=== PATIENT | male | born 1955 | race Caucasian/White ===

== ENCOUNTER 2021-03-05 05:11 | Observation (INO) ==
--- NOTE | 2021-01-19 16:16 | PAT Medication Instructions ---
Medication Instructions Date of Service January 19, 2021 Home Medications betamethasone dipropionate 1 applic TOPICAL BID PRN meloxicam 15 mg PO QAM ASK your surgeon for instructions meloxicam 15 mg PO QAM STOP taking 24 hours before surgery betamethasone dipropionate 1 applic TOPICAL BID PRN OTHERWISE NOTHING TO EAT OR DRINK AFTER MIDNIGHT Other Notes If you have any questions please call us at [phone] or [phone] or [phone] or [phone]
--- NOTE | 2021-01-21 08:15 | Anesthesiology Consultation ---
Date of Service January 21, 2021 Assessment & Plan (1) Encounter for pre-operative examination: Chart Review Chart Review: Acceptable Risk for Surgery (pending preop Covid testing results ) and Patient seen in Pre Admission Testing Per PAT appt on 01/21/21, pt traveled to [place] in December 2020- stayed with daughter and family- wore mask in public in [place]. Occasionally wears mask in [place] in public. Pt is vaccinated for Covid. No known Covid positive contacts or Covid related symptoms. No known Covid infection in the past 90 days . Preop Covid testing scheduled 03/03/21= will await results. Educated on importance of self quarantining, social distancing and wearing mask in public both for the patient after Covid testing done Teaching & Discussion Pre-Anesthesia Teaching/Discussion Notes: Instructed NPO after midnight before surgery,except medications with 15 cc of water. Medication instructions provided according to the PAT guidelines. History Surgery Operation Date: 03/05/21 07:15 Proposed Procedures p Left Total Hip Arthroplasty - Adi Aguilera MD Height/Weight Height: 5 ft 9.5 in Weight: 75 kg Allergies Allergy/AdvReac Type Severity Reaction Status Date / Time Iodinated Contrast Media Allergy Intermediate NAUSEA/FACIAL Verified 01/19/21 08:35 SWELLING Medications Home Medications Medication Instructions Recorded Confirmed Last Taken betamethasone dipropionate 1 applic TOPICAL BID PRN 01/19/21 01/19/21 Unknown meloxicam 15 mg PO QAM 01/19/21 01/19/21 Unknown Past Medical History Medical History (Updated 01/21/21 @ 08:36 by Yasmeen Funez PA-C) Degenerative joint disease of left hip Hyperlipidemia hx -- no current medications Irregular heart beat Occ extra/missed beat per patient; noted on stress test many years ago Pt asymptomatic- has never needed to follow with cardio Osteoarthritis Exercise / Class Metabolic Activity II 4-5 Yardwork/Stairs/Walk up hill (one flight of stairs - no chest pain or SOB) Past Family History Family History Other No family history of adverse response to anesthesia Past Surgical History Surgical History History of colonoscopy History of hip surgery right hip resurfacing surgery S/P ACL repair right S/P left knee arthroscopy Past Anesthesia History No Hx of Anesthesia Complications and No Family Hx of Anesthesia Complications History of PONV No Hx of PONV and No Hx of Motion Sickness Social History Smoking Status: Never smoker Do You Dip or Chew Tobacco: No Hx Alcohol Use: Yes Alcohol type: beer and wine alcohol intake frequency: a few times a week Hx Substance Use: No substance use type: does not use Review of Systems Patient denies chest pain, shortness of breath, dyspnea on exertion, reflux, cough, wheezing, palpitations. No hx of seizures, stroke, ND, apnea/snoring. No hx of blood clots or blood transfusions Physical Exam Vital Signs VITALS BP 126/84 P 79 TEMP 98.3 SP02 98% RESP 16 Constitutional no acute distress ENMT Mouth: no TMJ clicking Thyromental Distance: > or= 3.5 Finger Breadths (3.5) Mallampati Class: II Crowns to bottom to front teeth Missing molar Neck + limited neck extension (mild ) Respiratory normal respiratory effort; no respiratory distress Auscultation: lungs clear to auscultation bilaterally; no wheezes Cardiovascular Rate/Rhythm: regular rate and regular rhythm (occ missing beat ) Heart Sounds: no murmur Vessels: no carotid bruit Musculoskeletal Spine: no pain with cervical ROM Extremities: extremities normal to inspection Psychiatric Orientation: alert Lab Results Anesthesia Preop Results Results Anesthesia Widget: WBC 4.66 K/uL (4.8-10.8) L 01/21/21 Hgb 14.9 g/dL (14.0-18.0) 01/21/21 Hct 43.9 % (42-52) 01/21/21 Plt 259 K/uL (130-400) 01/21/21 Na 141 mmol/L (136-145) 01/21/21 K 4.8 mmol/L (3.5-5.1) 01/21/21 Cl 110 mmol/L (98-107) H 01/21/21 CO2 29 mmol/L (21-32) 01/21/21 BUN 30 mg/dl (7-18) H 01/21/21 Creat 0.88 mg/dl (0.6-1.4) 01/21/21 Glucose Level 91 mg/dl (70-99) 01/21/21 PT 10.1 Seconds (9.0-12.0) 01/21/21 PTT 27.1 Seconds (21.0-31.0) 01/21/21 INR 1.0 (0.9-1.1) 01/21/21 Blood Type O Positive 01/21/21 Antibody Screen NEGATIVE 01/21/21 Testing Electrocardiogram Date: 01/21/21 Findings: + NSR @ (74bpm) Normal EKG per cardio. Chest X-Ray Date: 01/22/21 Findings: + NAD The nodular density within the right midlung zone is no longer identified and was likely due to an overlapping button. Therefore, the lungs are clear. No pleural effusions. No pneumothorax. The heart is normal in size.
[2021-03-05] MEDS ORDERED: ceFAZolin 2000MG 2,000 MG/15 ML SYR IV SCH (06:00)
[2021-03-05] MEDS ORDERED: FAMOTIDINE 20 MG TAB PO SCH (06:00)
[2021-03-05] MEDS ORDERED: ACETAMINOPHEN 500 MG TAB PO SCH (06:00)
[2021-03-05] MEDS ORDERED: LR 500ML BOLUS, THEN 15ML/HR IV SCH (06:00)
[2021-03-05] MEDS ORDERED: GABAPENTIN 300 MG CAP PO SCH (06:00)
[2021-03-05] MEDS ORDERED: METOCLOPRAMIDE HCL 10 MG TABLET PO SCH (06:00)
[2021-03-05] MEDS ORDERED: LR 60ML/HR IV SCH (06:00)
[2021-03-05] MEDS ORDERED: Scopolamine 1 MG TDSY TD SCH (06:00)
[2021-03-05] MEDS ORDERED: BUPIVACAINE 0.5 % 5 MG/1 ML PF 10ML VIAL ONE (06:24)
[2021-03-05] MEDS ORDERED: BUPIVACAINE 0.5 % 5 MG/1 ML MPF 30ML VIAL ONE (06:37)
[2021-03-05] MEDS ORDERED: MIDAZOLAM HCL 1 MG/ML 2ML VIAL ONE (06:37)
[2021-03-05] MEDS ORDERED: EPINEPHrine INJ 1 MG/ML AMP ONE (06:37)
[2021-03-05] MEDS ORDERED: MoRPHine SULFATE PF 1 MG/ML 10 ML AMP/VIAL ONE (06:50)
--- NOTE | 2021-03-05 06:54 | History & Physical Bridge Note ---
Date of Service March 05, 2021 History & Physical Bridge Note I have examined the patient, reviewed the History & Physical and in the interval since the performance of the History & Physical I have noted the following changes of clinical significance: no changes noted
[2021-03-05] MEDS: TRANEXAMIC ACID 1,000 MG **IV Pre-op IV SCH ×2 (07:58→08:21)
[2021-03-05] MEDS ORDERED: PROPOFOL IV EMULSION 10 MG/ML 20 ML VIAL IV ONE (08:17)
[2021-03-05] MEDS ORDERED: NALBUPHINE HCL INJ 10 MG/ML AMP IV PRN (08:22)
[2021-03-05] MEDS ORDERED: METOCLOPRAMIDE HCL 20 MG in SODIUM CHLORIDE 0.9% 50 ML IV PRN (08:22)
[2021-03-05] MEDS ORDERED: MoRPHine SULFATE 2 MG/ML CARP IV PRN (08:22)
[2021-03-05] MEDS ORDERED: diphenhydrAMINE 50 MG/ML VIAL IV PRN (08:22)
[2021-03-05] MEDS ORDERED: LACTATED RINGER'S 500 ML IV PRN (08:22)
[2021-03-05] MEDS ORDERED: HYDROmorphone INJ 0.5 MG/0.5 ML SYR IV PRN (08:22)
[2021-03-05] MEDS ORDERED: ONDANSETRON INJ 2 MG/ML 2 ML VIAL IV PRN (08:22)
[2021-03-05] MEDS ORDERED: MoRPHine SULFATE PF 1 MG/ML 10 ML AMP/VIAL INT SPINAL ONE (08:22)
[2021-03-05] MEDS ORDERED: NALOXONE HCL 0.4 MG/1 ML VIAL/CARP IV PRN ×2 (08:22→09:45)
[2021-03-05] MEDS ORDERED: PROMETHAZINE HCL 25 MG in SODIUM CHLORIDE 0.9% 50 ML IV PRN (08:22)
[2021-03-05] MEDS ORDERED: NALOXONE HCL 0.08 MG in SYRINGE 1.8 ML IV PRN (08:22)
[2021-03-05] MEDS ORDERED: KETOROLAC 30 MG/ML VIAL IV PRN (08:22)
[2021-03-05] MEDS ORDERED: ePHEDrine sulfate 50 MG/ML AMP IV PRN (08:22)
[2021-03-05] MEDS ORDERED: NALOXONE HCL 1 MG in SODIUM CHLORIDE 0.9% 1000ML 1,000 ML IV PRN (08:22)
[2021-03-05] MEDS ORDERED: MEPERIDINE HCL 25 MG/ML CARP/VIAL IV PRN (08:22)
[2021-03-05] MEDS ORDERED: DC INTRASPINAL MORPHINE SCH (08:30)
[2021-03-05] MEDS ORDERED: SODIUM CHLORIDE 0.9% 1000ML 1,000 ML IV SCH (08:30)
[2021-03-05] MEDS ORDERED: NO NARCOTICS OR SEDATIVES SCH (08:30)
--- NOTE | 2021-03-05 08:40 | Operative Report ---
Post Operative Report Pre & Post Diagnosis Operation Date: 03/05/21 07:00 Pre-Op Diagnosis: Left Hip Advanced Degenerative Joint Disease Post-Op Diagnosis: Left Hip Advanced Degenerative Joint Disease I identified the patient and participated in the time-out.: Yes Procedure Operation Date: 03/05/21 07:00 Actual Procedures p Left Total Hip Arthroplasty--Uncemented(Left) - Adi Aguilera MD Surgeon Adi Aguilera MD Orthotics Prosthetics Assistant PAZ Boone Estimated Blood Loss 200 Findings Consistent with Post-Op Diagnosis Operative findings revealed advanced left hip DJD. He had grade 4 wign-wo-cowj disease the femoral head and acetabulum. He had a large anterior and inferior acetabular osteophytes. Pretty significant medial acetabular osteophyte as well. Moderate-sized joint effusion. Fluids 1400 cc. Specimens Left femoral head sent to pathology. Drains None Anesthesia Type Spinal MAC Complications none Disposition Accompanied Patient To Recovery: Yes Indications Patient is 65-year-old fairly active gentleman said a long history of hip problems. He had a previous hip resurfacing operation done several years ago. Over the past several years he developed increased pain discomfort in his left hip. He failed conservative measures. X-rays show advanced left hip DJD. He elected proceed with surgical treatment. Description of Procedure Operative implants consist of: 1. Biomet G7 size 56 mm acetabular shell. 2. [place] hole evp business development. 3. 6.5 cancellous acetabular screws 1 of 35 mm in length and 1 to 20 mm length. 4. Highly cross-linked polyethylene liner with a 56 mm outer diameter and 36 mm inner diameter. 5. Sundar Corail size 10 KLA femoral stem. 6. +8.5/36 mm ceramic articular ball. The patient was taken to the operating, identified, placed on the operating table supine position but a contractors were properly padded. IV antibiotics tried by anesthesia team. A spinal anesthetic and been implemented holding area. Pinzon catheter was placed in sterile fashion. The patient was then placed in the right lateral decubitus position. An axillary roll was placed. A Stulberg hip positioner was used for positioning. Left hip and leg were then prepped and draped in usual sterile fashion. A posterior lateral approach to the left hip was then performed through a curvilinear incision centered over the greater trochanter. Sharp dissection was got through subcutaneous tissue then closed the IT band gluteal fascia the IT band gluteal fascia then incised longitudinally in line with skin incision. The underlying greater bursa was excised. The piriformis and external rotators were tagged and taken off the posterior aspect hip joint capsule. Great care was taken throughout the procedure protect the sciatic nerve at all times. Posterior capsulotomy was then performed leaving a large flap for later repair. Hip was internally rotated and dislocated. Femoral neck osteotomy cut was made with Final Cut about 7 mm above the lesser trochanter. Femoral head was removed and sent both pathology. The femur was retracted anteriorly. Attention drawn the acetabulum. The acetabular labrum was excised per the pulmonary fat was excised. Sequential reaming the acetabular was then performed begin with size 47 and progressing up to 55. I did reamed a little bit with a 56 reamer and then placed a 56 mm cup in about 40 degrees lateral opening and 20 degrees of anteversion. It was fixed with two 6.5 cancellous acetabular screws. Some large anterior and inferior osteophytes were removed. Trial liner was placed. Attention drawn the femur. The proximal femur was entered with a cookie-cutter followed by canal finder. I broached begin the size 8 and progressing up to 10. We got good fit at 10. Then trialed the hip and the +5 articular ball was fully stable but just soft tissue tension seemed a little bit lax. Therefore we elect to place the +8.5 articular ball. Seem to recreate leg length equal and soft tissue tension appropriately. Attention drawn to place the permanent implants. All trial implants were removed. An apex hole evp business development was placed but highly cross-linked polyethylene liner was placed. A size 10 KLA femoral stem was impacted in position. A +8.5/36 mm ceramic articular ball was placed. Hip was located once again found to be stable. Attention drawn toward closing. The wounds irrigated scope soft pulsatile lavage solution. I injected locally with 60 cc of half percent Marcaine with epinephrine. Posterior capsule and external rotators were then repaired through drills in the posterior trochanter with #2 Tycron suture. The IT band gluteal fascia then closed in 1 PDS suture running fashion for subcutaneous tissue then closed with 2 layers the deep layer #1 Vicryl suture and subcutaneous tissue with 2-0 Dexon suture in a buried interrupted fashion the skin was closed with skin unruly. Legs then cleaned and dried a sterile dressing both Xeroform, 4 x 4's, sterile ABD pad and foam tape was applied. Patient transferred to the recovery room in stable condition. Patient tolerated procedure well and there were no complications. Sherman Boone, my physician assistant scientist, was present for the entire procedure. His assistance was essential and required for appropriate patient positioning, prepping and draping, surgical exposure, performing the technical details of the operation, placement the implants, closure of the wound, and placement of the sterile bandage. I attest to the content of the Intraoperative Record and any orders documented therein. Any exceptions are noted below.
--- NOTE | 2021-03-05 09:04 | Anesthesiology Progress Note ---
Date of Service March 05, 2021 Anesthesia Post Procedure Vital Signs Vital Signs: Temp Pulse Pulse Resp BP Pulse Ox 03/05/21 09:00 79 16 111/67 94 03/05/21 08:50 36.4 C L 79 16 114/65 93 03/05/21 08:40 82 17 115/65 95 03/05/21 08:30 36.6 C 83 18 114/63 97 03/05/21 05:55 36.9 C 80 20 136/90 96 03/05/21 05:35 36.7 C 76 20 126/86 96 Transfer of Care Handoff Completed per policy Notes Mental Status: alert / awake / arousable and participated in evaluation Patient Amnestic to Procedure: Yes Nausea / Vomiting: adequately controlled Pain: adequately controlled Airway Patency, RR, SpO2: stable & adequate BP & HR: stable & adequate Hydration State: stable & adequate Neuraxial Anesthesia: was administered and sensory block is resolving Anesthetic Complications: no major complications apparent
--- NOTE | 2021-03-05 09:28 | XRay Report ---
AP PELVIS, CROSSTABLE LATERAL LEFT HIP History: Left total hip arthroplasty. Degenerative arthritis. Postop. FINDINGS: The patient is status post a left total hip arthroplasty. The hardware is intact. No fractu re or dislocation. Skin unruly are in place. Right femoral head prosthesis is noted. IMPRESSION: Left total hip arthroplasty. No evidence for hardware complication. ACT 112: Negative or not required by law. Electronically signed by: Jan Beltre M.D. 03/05/2021 9:26 AM
[2021-03-05] MEDS ORDERED: bisacodyL 10 MG SUPP PR PRN (09:45)
[2021-03-05] MEDS ORDERED: ALUMINUM/MAGNESIUM SUSP 30 ML UDC PO PRN (09:45)
[2021-03-05] MEDS ORDERED: TAMSULOSIN HCL 0.4 MG CAP PO PRN (09:45)
[2021-03-05] MEDS ORDERED: NON-FORMULARY MEDICATION (Betamethasone Dipropionate 0.05 % Cream) TOP PRN (09:45)
[2021-03-05] MEDS ORDERED: MAGNESIUM HYDROXIDE SUSP 30 ML UDC PO PRN (09:45)
[2021-03-05] MEDS ORDERED: PNEUMOCOCCAL POLYSACCHARIDES 25 MCG/0.5 ML VIAL/SYR IM ONE (11:03)
[2021-03-05] MEDS: SODIUM CHLORIDE 0.9% 1000ML 1,000 ML IV SCH ×2 (11:29→22:15)
[2021-03-05] MEDS: DOCUSATE SODIUM 100 MG CAP PO SCH ×2 (11:30→22:17)
[2021-03-05] MEDS: ASPIRIN 81 MG ECTAB PO SCH ×2 (11:30→22:16)
[2021-03-05] MEDS: MULTIVITAMIN TAB PO SCH (11:30)
--- NOTE | 2021-03-05 12:30 | Progress Notes ---
DATE OF SERVICE: 03/05/2021. SUBJECTIVE: A 65-year-old gentleman postop from a left hip replacement. He is doing well. He did n ot have pain yet. The legs are still numb. No chest pain or shortness of breath. Not feeling dizzy or lightheaded. OBJECTIVE VITAL SIGNS: Temperature 36.4. Vital signs are stable. PHYSICAL EXAMINATION: GENERAL: Shows a pleasant middle-aged male. I had to wake him when I went into his room this aftern oon. EXTREMITIES: Examination of left hip reveals his leg lengths are equal. He did not move feet on eit her side yet. He has got a pink toes with brisk refill. No significant sensory function yet either. X-RAYS: X-rays of the left hip from recovery room are reviewed. He has a left uncemented total hip arthroplasty. No signs of problems. Implants look well positioned. ASSESSMENT: A 65-year-old gentleman postoperative from a left uncemented hip replacement, doing well . Hip is located. A spinal still in effect, so neurovascular status is difficult to assess. PLAN: 1. DVT prophylaxis include thigh-high TEDs, SCDs, and aspirin twice a day. 2. PT, OT, weightbear as tolerated. Left total hip protocol. 3. Pain control, doing okay with current pain regimen. We have to obviously adjust his medicines as the spinal wears off. 4. IV antibiotics x24 hours. 5. Disposition: Plan to discharge to home with some home health, hopefully tomorrow if does okay in therapy and pain is controlled. Job ID: [id number]
[2021-03-05] MEDS: ACETAMINOPHEN 500 MG TAB PO SCH ×2 (13:34→22:16)
[2021-03-05] MEDS ORDERED: TRANEXAMIC ACID / 0.7% NACL 1,000 MG/100 ML BAG IV SCH (14:30)
[2021-03-05] MEDS: ceFAZolin 1000MG 1,000 MG/7.5 ML SYR IV SCH ×2 (15:23→22:19)
[2021-03-05] MEDS: Scopolamine CHECK PATCH PLACEMENT SCH (15:28)
[2021-03-05] MEDS: ASCORBIC ACID 500 MG TAB PO SCH (16:50)
[2021-03-05] MEDS ORDERED: SENNA 8.6 MG TAB PO SCH (21:00)
[2021-03-06] MEDS: Scopolamine CHECK PATCH PLACEMENT SCH ×2 (00:46→08:28)
[2021-03-06] MEDS ORDERED: ONDANSETRON INJ 2 MG/ML 2 ML VIAL IV PRN (02:23)
[2021-03-06] MEDS ORDERED: traMADol HCL 50 MG TABLET PO PRN (02:30)
[2021-03-06] MEDS ORDERED: METOCLOPRAMIDE HCL INJ 5 MG/ML 2 ML VIAL IV PRN (02:30)
[2021-03-06] MEDS ORDERED: HYDROmorphone INJ 0.5 MG/0.5 ML SYR IV PRN (02:30)
[2021-03-06 06:01] LABS: Basophils # (auto) 0.01 K/uL (0-0.2); Basophils % (auto) 0.1 %; Eosinophils # (auto) 0.16 K/uL (0-0.5); Eosinophils % (auto) 2.1 %; Hemoglobin 12.3 g/dL (14.0-18.0); Immature Granulocytes # (auto) 0.01 K/uL (0.00-0.02); Immature Granulocytes % (auto) 0.1 %; Lymphocytes # (auto) 1.28 K/uL (1.2-3.4); Lymphocytes % (auto) 16.7 %; Mean Corpuscular Hemoglobin 31.9 pg (25-34); Mean Corpuscular Hgb Conc 33.2 g/dL (32-36); Mean Corpuscular Volume 95.9 fL (80-100); Mean Platelet Volume 10.5 fL (7.4-10.4); Monocytes # (auto) 0.88 K/uL (0.11-0.59); Monocytes % (auto) 11.5 %; Neutrophils # (auto) 5.32 K/uL (1.4-6.5); Neutrophils % (auto) 69.5 %; Platelet Count 214 K/uL (130-400); RDW Coefficient of Variation 14.3 % (11.5-14.5); RDW Standard Deviation 50.4 fL (36.4-46.3); Red Blood Count 3.86 M/uL (4.7-6.1); White Blood Count 7.66 K/uL (4.8-10.8)
[2021-03-06] MEDS: KETOROLAC TROMETHAMINE 15 MG/ML VIAL IV SCH ×2 (06:11→11:53)
[2021-03-06] MEDS: SODIUM CHLORIDE 0.9% 1000ML 1,000 ML IV SCH (06:11)
[2021-03-06] MEDS: ACETAMINOPHEN 500 MG TAB PO SCH ×2 (06:11→13:24)
[2021-03-06 06:26] LABS: BUN Creatinine Ratio 20.2 (10-20); Calcium 7.8 mg/dl (8.5-10.1); Creatinine Clr Calc Pharmacy 98.5 ml/min; Est GFR (Non-African American) 95.7 ml/min; Potassium 3.9 mmol/L (3.5-5.1)
[2021-03-06] MEDS ORDERED: dexAMETHasone 10 MG in SYRINGE 0 ML IV SCH (08:00)
[2021-03-06] MEDS: ASCORBIC ACID 500 MG TAB PO SCH (08:27)
[2021-03-06] MEDS: ASPIRIN 81 MG ECTAB PO SCH (08:28)
[2021-03-06] MEDS: DOCUSATE SODIUM 100 MG CAP PO SCH (08:29)
[2021-03-06] MEDS: MULTIVITAMIN TAB PO SCH (08:29)
--- NOTE | 2021-03-06 08:33 | Progress Notes ---
DATE OF SERVICE: 03/06/2021. SUBJECTIVE: A 65-year-old gentleman postoperative day 1 from left hip replacement. He is doing pret ty well. Pain is controlled. He is getting around reasonably well. No chest pain or shortness of b reath. Not feeling dizzy or lightheaded. The function has returned to his legs. OBJECTIVE: VITAL SIGNS: Temperature 36.4. Vital signs are stable. PHYSICAL EXAMINATION: GENERAL: Shows a pleasant, healthy middle-aged male. He is sitting up at his bedside chair, looks c omfortable. LUNGS: Clear to auscultation. HEART: Regular rate and rhythm. ABDOMEN: Soft, nontender, nondistended. EXTREMITIES: Grossly neurovascularly intact except as follows: Examination of the left hip reveals the dressing to be clean, dry and intact. Leg lengths are equal. Thigh is soft and supple. He can dorsiflex and plantarflex his foot appropriately. NEUROLOGIC: He is neurologically intact. LABORATORY DATA: Hemoglobin 12.3. Hematocrit 37.0. Electrolytes are stable. ASSESSMENT: A 65-year-old gentleman postoperative day 1 from left hip replacement, doing well. His pain is controlled. Hip is located. He is neurologically intact. PLAN: 1. DVT prophylaxis includes thigh-high TEDs, SCDs, and aspirin twice a day. 2. PT, OT, weightbear as tolerated. Left total hip protocol. 3. Pain control, doing well with current pain regimen. 4. Disposition: Plan to discharge to home with some home health likely later today. Job ID: [id number]
--- NOTE | 2021-03-08 09:02 | Discharge Summary ---
Date of Service March 08, 2021 Discharge Data Procedures Performed Operation Date: 03/05/21 07:00 Actual Procedures p Left Total Hip Arthroplasty--Uncemented(Left) - Adi Aguilera MD Hospital Course (1) Status post total hip replacement, left: This is a 65 year old patient admitted on 03/05/21 and underwent total hip arthroplasty. He tolerated the procedure well and there were no complications. Transferred to the PACU post op and later to the orthopedic floor for further care. He was given ancef for antibiotic prophylaxis. He was also given SULEMAN stockings, SCDs, and aspirin for DVT prophylaxis. Hemoglobin, hematocrit, and vital signs were monitored during his hospital stay and remained stable. Did not require any blood transfusions. There were no complications during his hospital stay. By post op day #1 the patient was tolerating a regular diet, pain was reasonably controlled with oral pain medicine, and he was participating in physical therapy. On post op day #1 the patient was discharged home and set up with home health care. He was given printed discharge instructions including prescriptions for extra strength tylenol, aspirin, and tramadol. Continue physical therapy, weight bearing as tolerated. Continue hip precautions. Continue SULEMAN stockings. Follow up approximately 2 weeks post op or sooner if there are problems or concerns. Coding Level of Care Code None Diagnoses Status post total hip replacement, left Z96.642
== END 2021-03-06 15:49 | disposition home health service (06) ==
LOC: ASU 05:11 → 3E 05:11

== ENCOUNTER 2021-12-21 10:06 | Observation (INO) ==
--- NOTE | 2021-11-15 14:05 | PAT Medication Instructions ---
Medication Instructions Date of Service November 15, 2021 Home Medications Medication Instructions Recorded Susanne Gresham #1 ea 02/25/21 meloxicam 15 mg tablet 15 mg PO QAM #30 tab 02/25/21 betamethasone dipropionate 0.05 % topical cream 1 applic TOPICAL BID PRN meloxicam 15 mg tablet 15 mg PO QAM ASK your surgeon for instructions meloxicam 15 mg tablet 15 mg PO QAM STOP taking 24 hours before surgery betamethasone dipropionate 0.05 % topical cream 1 applic TOPICAL BID PRN Other Notes If you have any questions please call us at [phone] or [phone] or [phone] or [phone]
--- NOTE | 2021-11-18 09:47 | Anesthesiology Consultation ---
Date of Service November 18, 2021 Assessment & Plan (1) Encounter for pre-operative examination: - COVID screening: Per assessment on 11/18: No known COVID-19 positive contacts or current COVID-19 related symptoms. Travel screen negative. Patient vaccinated. Surgeon arranging preop COVID testing. Awaiting results. - S/P Left WEST (03/05/21): SAB at L3-L4 x1 attempt at [facility]. No issues per post-op anesthesia progress note. Chart Review Chart Review: Acceptable Risk for Surgery and Patient seen in Pre Admission Testing Teaching & Discussion Pre-Anesthesia Teaching/Discussion Notes: Instructed NPO after midnight before surgery,except medications with 15 cc of water. Medication instructions provided according to the PAT guidelines. History Surgery Operation Date: 12/21/21 10:40 Proposed Procedures p Left Total Knee Arthroplasty - Adi Aguilera MD Height/Weight Height: 5 ft 9 in Weight: 80 kg Allergies Allergy/AdvReac Type Severity Reaction Status Date / Time Iodinated Contrast Media Allergy Intermediate Nausea, Verified 11/18/21 09:47 facial swelling Medications Home Medications Medication Instructions Recorded Confirmed Last Taken betamethasone dipropionate 0.05 % 1 applic TOPICAL BID PRN 01/19/21 11/18/21 03/01/21 09:00 topical cream Wheeled Walker #1 ea 02/25/21 11/18/21 Unknown meloxicam 15 mg tablet 15 mg PO QAM #30 tab 02/25/21 11/18/21 03/02/21 09:00 Past Medical History Medical History Degenerative joint disease of left hip Hyperlipidemia Hx (no current medications) Irregular heart beat Occasional extra/missed beat per patient; noted on stress test many years ago. Pt asymptomatic. NSR with no arrhythmias on most recent EKG 01/21/21 Left knee DJD Osteoarthritis Exercise / Class Metabolic Activity II 4-5 Yardwork/Stairs/Walk up hill (one FS (no CP, no SOB)) Past Family History Family History Other No family history of adverse response to anesthesia Past Surgical History Surgical History History of colonoscopy History of hip surgery right hip resurfacing surgery History of total left hip arthroplasty Left WEST (03/05/21): SAB at L3-L4 x1 attempt at [facility]. No issues per post-op anesthesia progress note. S/P ACL repair right S/P left knee arthroscopy Past Anesthesia History No Hx of Anesthesia Complications and No Family Hx of Anesthesia Complications History of PONV No Hx of PONV and No Hx of Motion Sickness Social History Smoking Status: Never smoker Do You Dip or Chew Tobacco: No Hx Alcohol Use: Yes Alcohol type: beer and wine alcohol intake frequency: a few times a week Hx Substance Use: No substance use type: does not use Review of Systems Patient denies chest pain, shortness of breath, dyspnea on exertion, fever, chills, cough, wheezing, palpitations. Physical Exam Vital Signs VITALS BP 124/82 P 83 TEMP 98.2 SP02 98%RA RESP 16 PHYSICAL Full cervical extension range of motion. Full TMJ range of motion. TMD 4 finger breaths Mallampati Score 2 Dentition: + missing molars Lungs: clear throughout to auscultation Cardiac: regular rate and rhythm, no murmurs noted Spine: normal Carotid arteries: negative bruit Extremities: no edema Lab Results Anesthesia Preop Results Results Anesthesia Widget: WBC 5.08 K/uL (4.8-10.8) 11/18/21 Hgb 14.5 g/dL (14.0-18.0) 11/18/21 Hct 43.7 % (42-52) 11/18/21 Plt 251 K/uL (130-400) 11/18/21 Na 140 mmol/L (136-145) 11/18/21 K 4.3 mmol/L (3.5-5.1) 11/18/21 Cl 107 mmol/L (98-107) 11/18/21 CO2 27 mmol/L (21-32) 11/18/21 BUN 30 mg/dl (6-23) H 11/18/21 Creat 0.99 mg/dl (0.6-1.4) 11/18/21 Glucose Level 95 mg/dl (70-99(Fasting)) 11/18/21 PT 10.7 Seconds (9.0-12.0) 11/18/21 PTT 27.0 Seconds (21.0-31.0) 11/18/21 INR 1.0 (0.9-1.1) 11/18/21 Blood Type O Positive 11/18/21 Antibody Screen NEGATIVE 11/18/21 Testing Electrocardiogram Date: 01/21/21 Findings:+ NSR @ (74bpm) Normal EKG per cardio. Chest X-Ray Date: 01/22/21 Findings:+ NAD The nodular density within the right midlung zone is no longer identified and was likely due to an overlapping button. Therefore, the lungs are clear. No pleural effusions. No pneumothorax. The heart is normal in size.
--- NOTE | 2021-12-18 11:58 | History and Physical Report ---
DATE OF ADMISSION: 12/21/2021 CHIEF COMPLAINT: Left knee pain. 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 He is now about 9- 1/2 months out from left hip replacement surgery done by myself. He previously had his right hip res urfacing done by Dr. Escobedo many years ago. His left knee continues to bother him. It is mostly med ial pain, but some global pain. The more he is up and on it, the more it hurts. He limps more as e day goes on. He has had injections, which helped temporarily, but nothing long-lasting. He is yamilex dy to have this fixed. The more he walks, the more it hurts and the more he limps. PAST MEDICAL HISTORY: Significant for, 1. Elevated cholesterol. 2. Anxiety. PAST SURGICAL HISTORY: Includes, 1. Right hip resurfacing. 2. Right knee ACL/MCL surgery. 3. Left knee arthroscopy many years ago. 4. Left total hip replacement done in 02/2021. ALLERGIES: None. CURRENT MEDICATIONS: 1. Meloxicam. 2. Zolpidem. 3. Lorazepam. SOCIAL HISTORY: A 66-year-old gentleman. He is currently retired. 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 He is . He does not smoke. FAMILY HISTORY: Noncontributory. REVIEW OF SYSTEMS: Negative for diabetes, neurologic problem, vascular problems or bleeding disorder s. No chest pain or shortness of breath. No history of DVT or PE. PHYSICAL EXAMINATION: GENERAL: Shows a pleasant middle-aged male. Looks to be in good health. HEENT: Benign. NECK: Supple. No lymphadenopathy. LUNGS: Clear to auscultation. HEART: Regular rate and rhythm. ABDOMEN: Soft, nontender, nondistended. EXTREMITIES: Grossly neurovascularly intact except as follows: Examination of the left knee reveals the patient walks with a bit of a limp. He has got varus alignment to his knee. He has got a varus thrust with weightbearing. He has got bony hypertrophy medially. Tender over the medial joint line . Small knee effusion. Range of motion 5-125. No instability. No pain with hip motion. X-RAYS: X-rays of the left knee were reviewed. It shows advanced left knee DJD. He has got complet e loss of his medial joint space. He has got subchondral sclerosis. He has got osteophytes primaril y medially. ASSESSMENT: A 66-year-old gentleman now about 9-1/2 months out from a left hip replacement with adva nced left knee degenerative joint disease. He has a history of a knee arthroscopy on this side as we ll as a hip resurfacing on the right side. He has failed conservative treatment and would like to reyes ve his left knee replaced. PLAN: We are going to take him to the operating room and do left total knee replacement. The risks and benefits of this procedure were explained to the patient that include but not limited to DVT, PE, , infection, neurological injury, vascular injury, bleeding problem, pain, limited range of mot ion, stiffness, failure to relieve his symptoms, incomplete relief of symptoms, etc. The patient und erstands and desires to proceed. Informed consent was obtained. We did talk about recovery. He has got a plan of staying in the hospital overnight. He is hoping to be discharged to home. I did tell him recovery is a little bit more difficult than the hip surgery. He is aware of this. Job ID: [id number]
[~2021-12-21 10:06] MED LIST: ACETAMINOPHEN 500 MG TAB PO SCH; BUPIVACAINE 0.5 % 5 MG/1 ML PF 10ML VIAL ONE; BUPIVACAINE LIPOSOME/PF 266 MG, BUPIVACAINE/EPINEPHRINE 50 ML, SODIUM CHLORIDE 0.9% 30 ... INFIL SCH; CeleBREX 200 MG CAP PO SCH; FAMOTIDINE 20 MG TAB PO SCH; LR 500ML BOLUS, THEN 15ML/HR IV SCH; LR 60ML/HR IV SCH; METOCLOPRAMIDE HCL 10 MG TABLET PO SCH; ROPIVACAINE 0.5% 5 MG/ML 30 ML VIAL ONE; Scopolamine 1 MG TDSY TD SCH; TRANEXAMIC ACID 1,000 MG **IV Intra-op IV SCH; ceFAZolin 2000MG 2,000 MG/15 ML SYR IV SCH
--- NOTE | 2021-12-21 11:14 | History & Physical Bridge Note ---
Date of Service December 21, 2021 History & Physical Bridge Note I have examined the patient, reviewed the History & Physical and in the interval since the performance of the History & Physical I have noted the following changes of clinical significance: no changes noted
[2021-12-21] MEDS ORDERED: MIDAZOLAM HCL 1 MG/ML 2ML VIAL ONE (11:43)
[2021-12-21] MEDS ORDERED: fentaNYL citrate 100 MCG/2 ML VIAL IV PRN (12:22)
[2021-12-21] MEDS ORDERED: ONDANSETRON INJ 2 MG/ML 2 ML VIAL IV PRN ×2 (12:22→17:24)
[2021-12-21] MEDS ORDERED: ATROPINE SULFATE 0.1 MG/ML 10ML SYR IV PRN (12:22)
[2021-12-21] MEDS ORDERED: ePHEDrine sulfate 50 MG/ML AMP IV PRN (12:22)
[2021-12-21] MEDS ORDERED: SODIUM CHLORIDE 0.9% PF 50 ML VIAL ONE (13:12)
[2021-12-21] MEDS ORDERED: BUPIVACAINE LIPOSOME 1.3% 266 MG/20 ML VIAL ONE (13:13)
[2021-12-21] MEDS ORDERED: EPINEPHrine INJ 1 MG/ML AMP ONE ×2 (13:13→13:15)
[2021-12-21] MEDS ORDERED: BUPIVACAINE 0.25% 30 ML VIAL ONE (13:13)
[2021-12-21] MEDS ORDERED: PROPOFOL IV EMULSION 10 MG/ML 20 ML VIAL IV ONE ×3 (13:15→15:00)
[2021-12-21] MEDS ORDERED: ONDANSETRON INJ 2 MG/ML 2 ML VIAL ONE (14:30)
[2021-12-21] MEDS ORDERED: PHENYLEPHRINE HCL 10 MG/ML VIAL ONE (15:02)
--- NOTE | 2021-12-21 15:30 | Operative Report ---
PG Post Operative Report Pre & Post Diagnosis Operation Date: 12/21/21 12:30 Pre-Op Diagnosis: Left Knee Advanced Degenerative Joint Disease Post-Op Diagnosis: Left Knee Advanced Degenerative Joint Disease I identified the patient and participated in the time-out.: Yes Procedure Operation Date: 12/21/21 12:30 Actual Procedures p Left Total Knee Arthroplasty(Left) - Adi Aguilera MD Surgeon Adi Aguilera MD Fishing Manager Sherman Boone PA-C Estimated Blood Loss 50 Findings Consistent with Post-Op Diagnosis Operative findings were advanced left knee tricompartment DJD with grade 4 changes in all 3 compartments. He had a varus deformity to his knee. Osteophytes in all 3 compartments. Moderate-sized joint effusion. Specimens Left knee sent for pathology Anesthesia Type Spinal MAC Complications none Disposition Accompanied Patient To Recovery: No Indications Patient is a 66-year-old very active gentleman said a long history of multiple joint problems. Is undergone several joint replacements in the past. Has a history of left knee arthroscopy in the past. He has developed progressive persistent left knee pain unresponsive conservative care. He elected proceed with total knee arthroplasty. Description of Procedure Operative implants consist of: 1 Biomet Vanguard size 72.5 left posterior stabilized femoral component. 2. Biomet size 75 tibial tray. 3. 12 mm posterior stabilized polyethylene insert. 4. 34 x 8 and half all Paller patella. The patient was taken to the operating room, identified, and placed on the operating table supine position protectors were properly padded. IV antibiotics tried by anesthesia team. A spinal anesthetic and abductor canal block had been applied in the holding area. Pinzon catheter was placed in sterile fashion. Left thigh tent was then placed in the left lower extremities and prepped and draped in usual sterile fashion. The left leg was elevated exsanguinated with use of an Esmarch and the to urniquet was set at 300 mmHg. An anterior approach to the left knee was then performed to longitudinal incision centered over the patella. Sharp dissection was carried through subcutaneous tissue down the extensor mechanism. Medial parapatellar arthrotomy incision was made. Some subperiosteal dissection was carried out medially. The fat pad was resected from Neath patella tendon. Lateral patellofemoral ligament was released. Patella was subluxated laterally knee was flexed. The osteophytes were taken off distal femur. ACL and PCL were then released from the distal femur the tibia subluxated anteriorly. The external treatment line jig was then placed in the interface the tibia and adjusted 16 mm medially. Proximal tibial cut was made remove about 2 mm of bone from the medial side. The tibia was then sized to a size 75. We did did the downsize this little to improve external rotation of the component. Attention drawn the femur. The distal femur examined the sharp drill bit intramedullary canal was suction. A left 6 degree valgus cutting guide was placed. The distal femoral cutting block was pinned in place. Distal femoral cut was made to take an additional 3 mm bone off distal femur. The femur was then sized to a size 72.5. The AP cutting block was pinned parallel to the epicondylar axis which was 5 degrees of external rotation. The anterior cut, anterior chamfer, posterior cut, posterior chamfer cuts were made. The box cutting guide was placed in just slight lateral box cut was made. The knee was flexed. The remnants of the medial and lateral menisci were excised. The osteophytes were taken off the posterior aspect of the femur. A trial femoral component was placed. The tibial tray was pinned in maximum external rotation and the drill and stem punch were used to create defect in proximal tibia for the tibial tray. Knee was then trialed and the 12 mm insert fit most appropriately. Attention drawn the patella. The patella was cleaned of all soft tissues. Patella thickness measured 27 mm in thickness was cut down to 15. Was sized to a size 34 patella. The lug holes were drilled for 34 patella. The lateral osteophyte was removed. Patella button was placed. Knee was taken through range of motion and the patella tracked well with no thumbs test. Attention drawn to placing permanent components. Nupathe all trial components were removed. Bone plug was placed in the distal femur limit blood loss. Double batch Palacos G cement was mixed. A Biomet Vanguard size 72.5 left posterior stabilized femoral component, size 75 tibial tray, 12 mm posterior stabilized polyethylene insert, and a 34 x 8 and half all Paller patella then cemented in place. Knee was brought out into full extension total cement hardened. Final cement check was then performed. Pericapsular tissues were injected with 100 cc of combination of 20 cc of Exparel, 30 cc normal saline, 50 cc of quarter percent Marcaine with epinephrine. Patient did receive 1 g tranexamic acid. The tourniquet was then let down for final turn time oh 64 minutes. Hemostasis assured use electrocautery. The wound was once again irrigated. The extensor mechanism closed with combination 1 PDS suture #1 Vicryl suture in [id number] fashion. Extensor mechanism checked found to be intact. Subcutaneous tissue then closed with 2 Dexon suture in buried interrupted fashion skin was closed skin unruly. Leg was then cleaned and dried and sterile dressed with Xeroform, 4 x 4's, sterile cast padding, Zion bandage were applied. Patient then transferred to the recovery room in stable condition. Patient tolerated procedure well and there were no complications. Sherman Boone, my physician product development assistant, was present for the entire procedure. His assistance was essential and required for appropriate patient positioning, prepping and draping, surgical exposure, performing the technical details of the operation, placement the implants, closure of the wound, and placement of the sterile bandage. I attest to the content of the Intraoperative Record and any orders documented therein. Any exceptions are noted below.
--- NOTE | 2021-12-21 15:47 | Anesthesiology Progress Note ---
Date of Service December 21, 2021 Anesthesia Post Procedure Vital Signs Vital Signs: Temp Pulse Resp BP Pulse Ox 12/21/21 15:45 36.2 C L 73 18 107/65 100 12/21/21 15:35 77 18 100/55 L 100 12/21/21 15:25 36.1 C L 85 18 100/59 L 95 12/21/21 10:35 36.5 C 89 20 156/85 H 97 Transfer of Care Handoff Completed per policy Notes Mental Status: alert / awake / arousable Patient Amnestic to Procedure: Yes Nausea / Vomiting: adequately controlled Pain: adequately controlled Airway Patency, RR, SpO2: stable & adequate BP & HR: stable & adequate Hydration State: stable & adequate Neuraxial Anesthesia: was administered and sensory block is resolving Anesthetic Complications: no major complications apparent and Pt Satisfied with anesthetic care
--- NOTE | 2021-12-21 15:58 | XRay Report ---
XR knee LT 1 or 2V routine HISTORY: 66 years-old Male Surgical Post Op left knee total joint arthroplasty COMPARISON: Knee radiographs 07/22/2021 TECHNIQUE: 2 views of the left knee FINDINGS: Left knee total joint arthroplasty with patellar resurfacing and anterior midline skin unruly. Expec patrice postoperative soft tissue swelling with deep tissue air. No acute fracture, dislocation or expect ed opaque foreign body. IMPRESSION: Total joint arthroplasty with expected postoperative changes. ACT 112: Negative or not required by law. The above report was generated using voice recognition software. It may contain grammatical, syntax o r spelling errors. Electronically signed by: Todd Osman M.D. 12/21/2021 3:56 PM
[2021-12-21] MEDS ORDERED: MAGNESIUM HYDROXIDE SUSP 30 ML UDC PO PRN (17:24)
[2021-12-21] MEDS ORDERED: NALOXONE HCL 0.4 MG/1 ML VIAL/CARP IV PRN (17:24)
[2021-12-21] MEDS ORDERED: traMADol HCL 50 MG TABLET PO PRN (17:24)
[2021-12-21] MEDS ORDERED: ALUMINUM/MAGNESIUM SUSP 30 ML UDC PO PRN (17:24)
[2021-12-21] MEDS ORDERED: bisacodyL 10 MG SUPP PR PRN (17:24)
[2021-12-21] MEDS ORDERED: HYDROmorphone INJ 0.5 MG/0.5 ML SYR IV PRN (17:24)
[2021-12-21] MEDS ORDERED: METOCLOPRAMIDE HCL INJ 5 MG/ML 2 ML VIAL IV PRN (17:24)
[2021-12-21] MEDS ORDERED: BETAMETHASONE DIP AUG (DIPROLENE) 0.05% CR 15 GM TUBE EXT PRN (18:44)
[2021-12-21] MEDS: Scopolamine CHECK PATCH PLACEMENT SCH ×2 (19:45→23:24)
[2021-12-21] MEDS: KETOROLAC TROMETHAMINE 15 MG/ML VIAL IV SCH (19:53)
[2021-12-21] MEDS: SODIUM CHLORIDE 0.9% 1000ML 1,000 ML IV SCH (19:53)
[2021-12-21] MEDS: ASCORBIC ACID 500 MG TAB PO SCH (19:53)
[2021-12-21] MEDS: ASPIRIN 81 MG ECTAB PO SCH (20:38)
[2021-12-21] MEDS: DOCUSATE SODIUM 100 MG CAP PO SCH (20:38)
[2021-12-21] MEDS: ceFAZolin 1000MG 1,000 MG/7.5 ML SYR IV SCH (20:39)
[2021-12-21] MEDS ORDERED: SENNA 8.6 MG TAB PO SCH (21:00)
[2021-12-21] MEDS ORDERED: TRANEXAMIC ACID / 0.7% NACL 1,000 MG/100 ML BAG IV SCH (21:30)
[2021-12-21] MEDS: ACETAMINOPHEN 500 MG TAB PO SCH (22:26)
[2021-12-22] MEDS: KETOROLAC TROMETHAMINE 15 MG/ML VIAL IV SCH ×3 (01:48→14:13)
[2021-12-22] MEDS: SODIUM CHLORIDE 0.9% 1000ML 1,000 ML IV SCH (05:43)
[2021-12-22] MEDS: ceFAZolin 1000MG 1,000 MG/7.5 ML SYR IV SCH (05:44)
[2021-12-22] MEDS: ACETAMINOPHEN 500 MG TAB PO SCH ×2 (05:48→14:13)
[2021-12-22 06:48] LABS: Hematocrit (blood only) 36.5 % (42-52); Hemoglobin 12.2 g/dL (14.0-18.0); Mean Corpuscular Hemoglobin 31.3 pg (25-34); Mean Corpuscular Hgb Conc 33.4 g/dL (32-36); Mean Corpuscular Volume 93.6 fL (80-100); Mean Platelet Volume 10.4 fL (7.4-10.4); Platelet Count 229 K/uL (130-400); RDW Coefficient of Variation 15.1 % (11.5-14.5); RDW Standard Deviation 51.4 fL (36.4-46.3); White Blood Count 7.35 K/uL (4.8-10.8)
[2021-12-22 07:10] LABS: BUN Creatinine Ratio 33.7 (10-20); Calcium 7.9 mg/dl (8.5-10.1); Creatinine Clr Calc Pharmacy 85.9 ml/min; Est GFR (African American) 104.7 ml/min; Est GFR (Non-African American) 90.4 ml/min; Potassium 4.1 mmol/L (3.5-5.1)
[2021-12-22] MEDS ORDERED: dexAMETHasone 10 MG in SYRINGE 0 ML IV SCH (08:00)
[2021-12-22] MEDS ORDERED: MULTIVITAMIN TAB PO SCH (09:00)
[2021-12-22] MEDS ORDERED: DOCUSATE SODIUM/SENNA 50/8.6MG TAB PO SCH (09:00)
[2021-12-22] MEDS ORDERED: TAMSULOSIN HCL 0.4 MG CAP PO SCH (09:00)
[2021-12-22] MEDS: Scopolamine CHECK PATCH PLACEMENT SCH (10:06)
[2021-12-22] MEDS: ASPIRIN 81 MG ECTAB PO SCH (10:07)
[2021-12-22] MEDS: DOCUSATE SODIUM 100 MG CAP PO SCH (10:07)
[2021-12-22] MEDS: ASCORBIC ACID 500 MG TAB PO SCH (10:08)
--- NOTE | 2021-12-22 13:24 | Orthopedic Progress Note ---
Date of Service December 22, 2021 Assessment & Plan (1) Status post total left knee replacement: -Doing well on POD 1 -Continue current pain control regimen -DVT PPx with TEDs/SCDs, Aspirin 81 mg BID x 6 weeks -PT/OT consulted; WBAT LLE; TKR protocol Disposition: Hopefully discharge home today with home health pending PT/OT evaluation. Discussed w/ Dr. Aguilera Subjective Doing well today. Pain controlled w/ current regimen. Ambulating with walker. VSS. Review of Systems All systems reviewed & are unremarkable except as noted in HPI & below. Physical Exam General: Pleasant 66 y/o/m resting comfortably in recliner in NAD. AAO x 4. LLE: Dressing C/D/I. Minimal incisional tenderness. Distally N/V/I. Results & Data Results & Data Laboratory Results Reviewed . Diagnostic Findings Reviewed - Post op Knee XRs with expected post operative findings and no hardware complications . PG Care Time/CCT Total # of Minutes Spent Total Time Spent with Patient: Total time spent is greater than 50% in coordination of care (as documented) at patient's floor/unit and/or counseling patient: Coding Level of Care Code 05037 Post Operative Follow-Up Diagnoses Status post total left knee replacement Z96.652
== END 2021-12-22 17:34 | disposition home health service (06) ==
LOC: PACUINP 10:06 → ASU 10:06 → 3N 18:06